=== PATIENT | male | born 1965 | race Caucasian/White ===

== ENCOUNTER 2017-01-06 10:53 | Inpatient (IN) | payer OTHER ==
[~2017-01-06] VITALS: Ht 180.3 cm; Wt 84.5 kg
--- NOTE | 2017-01-06 11:05 | NUR ---
Patient admitted to room [address] Chamorro's office. He reports cough and congestion since last week with an increase in sputum over the last several days. Sputum is green/ brown in color. Denies pain. No shortness of air noted at rest.
[2017-01-06] MEDS ORDERED: MAGNESIUM HYDROXIDE 80MG/ML (MILK OF MAGNESIA) 30 ML UDC PO PRN (11:10)
[2017-01-06] MEDS ORDERED: DEXTROSE 50% 25 GM/50 ML SYRINGE IV PRN (11:10)
[2017-01-06] MEDS ORDERED: GLUCAGON EMERGENCY 1 MG/KIT IM PRN (11:10)
[2017-01-06] MEDS ORDERED: ALBUTEROL 0.083% NEB SOLUTION 2.5 MG/3 ML VIAL INH PRN (11:10)
[2017-01-06] MEDS ORDERED: CALCIUM CARBONATE CHEWABLE 300 MG (TUMS) TABLET PO PRN (11:10)
[2017-01-06] MEDS ORDERED: MAG HYDROX/AL HYDROX/SIMETH 200-200-20/5 ML (MAG-AL PLUS) 30 ML UDC PO PRN (11:10)
[2017-01-06] MEDS ORDERED: DOCUSATE SODIUM 100 MG (COLACE) CAP PO PRN (11:10)
[2017-01-06] MEDS ORDERED: POLYETHYLENE GLYCOL 17 GM (MIRALAX) PACKET PO PRN (11:10)
[2017-01-06] MEDS ORDERED: ACETAMINOPHEN 325 MG TAB (TYLENOL) PO PRN (11:10)
[2017-01-06] MEDS ORDERED: IBUPROFEN 600 MG (MOTRIN) TAB PO PRN (11:10)
[2017-01-06] MEDS ORDERED: PROMETHAZINE HCL INJ 12.5 MG in SODIUM CHLORIDE 25 ML IV PRN (11:10)
[2017-01-06] MEDS ORDERED: DEXTROSE ORAL GEL (GLUTOSE 40%) 15 GM TUBE PO PRN (11:10)
[2017-01-06] MEDS ORDERED: NS FLUSH 10 ML PRN IV (11:30)
[2017-01-06] MEDS ORDERED: NS FLUSH 3 ML PRN IV (11:30)
[2017-01-06] MEDS ORDERED: LEVOFLOXACIN 750 MG/150 ML IV 150 ML IV SCH (11:30)
[2017-01-06 11:43] VITALS: BP 110/69
[2017-01-06 11:44] VITALS: BP 110/69
--- NOTE | 2017-01-06 12:00 | NUR ---
Attempted IV access X2 in the right hand but I was unsuccessful.
--- NOTE | 2017-01-06 12:15 | NUR ---
IV access obtained by Elle Goldstein RN in the left forearm- #[id number].
[2017-01-06] MEDS: ONDANSETRON 4 MG (ZOFRAN) ORAL DISSOLVE TAB PO PRN ×2 (12:28→18:17)
[2017-01-06] MEDS: INSULIN LISPRO 1 UNIT/0.01 ML (HUMALOG) DOSE SC SCH ×5 (12:45→21:41)
--- NOTE | 2017-01-06 13:15 | NUR ---
PCR collected and sent to lab.
[2017-01-06 14:07] LABS: ALBUMIN 3.4 g/dL (3.4-5.0); ANION GAP 18.2 MEQ/L (3-15); CALCULATED IONIZED CALCIUM 3.9 mg/dL (3.8-4.6); TOTAL PROTEIN 6.2 g/dL (6.4-8.5)
--- NOTE | 2017-01-06 14:31 | NUR ---
Sputum collected and sent to lab.
[2017-01-06 15:51] VITALS: BP 107/63
[2017-01-06 16:02] LABS: BILIRUBIN,URINE Negative (Negative); CLARITY,URINE Clear; GLUCOSE, URINE (UA) 2+ (Negative); LEUKOCYTE ESTERASE ,URINE Negative (Negative); PH,URINE 5.5 (5.0 - 8.0); UROBILINOGEN,URINE 0.2 mg/dL (0.2-1.0)
[2017-01-06 17:25] LABS: COLOR,URINE Dark Yellow
--- NOTE | 2017-01-06 17:26 | NUR ---
Pt. on room air, 94%. Instructed on use of acapella, frequent harsh NPC with each breath on acapella. Pt. informed of nebulizer tx's.
[2017-01-06 17:30] LABS: AMORPHOUS SEDIMENT,UR 1+ /HPF; RBC,URINE 20-50 /HPF; URINE CENTRIFUGED VOLUME 12 mL
--- NOTE | 2017-01-06 19:30 | NUR ---
Pt. very politely refuses SCD's; "I just don't think I would get any sleep at all".
--- NOTE | 2017-01-06 19:35 | NUR ---
Patient continues with intermittent nausea but no vomiting. Held meal time insulin due to poor oral intake- only a few bites of soup.
[2017-01-06] MEDS: guaiFENesin ER 600 MG (MUCINEX) TAB PO SCH (20:06)
--- NOTE | 2017-01-06 20:10 | NUR ---
New order of NS infusing without difficulty. Pt. denies discomfort; fatigued; occasional cough noted; at bedside. Call light and H2O within reach.
[2017-01-06 20:27] VITALS: BP 104/56
[2017-01-06] MEDS ORDERED: INSULIN GLARGINE 1 UNIT/0.01ML (LANTUS) DOSE SC SCH (21:00)
--- NOTE | 2017-01-06 21:45 | NUR ---
Accucheck is 240; Humalog 2 units given per sliding scale insulin. Lantus 15 units given per order. IVF infusing without difficulty; pt. resting in bed; denies nausea; occasional cough noted. Call light and H2O within reach.
[2017-01-07 00:51] VITALS: BP 108/66
[2017-01-07 04:17] VITALS: BP 109/64
--- NOTE | 2017-01-07 05:02 | NUR ---
Radiology here to take pt. downstairs for xray via wheelchair.
[2017-01-07 06:18] LABS: MEAN CORPUSCULAR HEMOGLOBIN 30.6 PG (26.0-34.0); MEAN CORPUSCULAR VOLUME 84 FL (80-100); MEAN PLATELET VOLUME 9.6 FL (6.0-9.5); PLATELET COUNT 203 10^3uL (150-450); WHITE BLOOD COUNT 16.94 10^3uL (4.0-11.0)
[2017-01-07 06:27] LABS: ALBUMIN 3.1 g/dL (3.4-5.0); ANION GAP 12.9 MEQ/L (3-15); PHOSPHORUS 1.8 mg/dL (2.4-4.9)
--- NOTE | 2017-01-07 06:40 | NUR ---
Pt. has remained afebrile throughout the shift; fatigued; occasional cough. Pt. denies discomfort. Accucheck is 216 this morning; sliding scale insulin to be given. NS fully infused. Pt. is very pleasant and cooperative; call light and H2O within reach.
[2017-01-07 06:52] LABS: MEAN CORPUSCULAR HGB CONC 36.5 g/dL (31.0-37.0)
[2017-01-07 06:59] LABS: BAND NEUTROPHILS % 5 % (0-6); EOSINOPHILS % 0 % (0-4); LYMPHOCYTES # 1.2 #; MONOCYTES # 1.3 #; MONOCYTES % 8 % (3-11); RBC MORPH NORMAL (NORMAL); SEGMENTED NEUTROPHILS % 80 % (51-67); TOTAL CELLS COUNTED 100
[2017-01-07 07:37] VITALS: BP 108/67
[2017-01-07] MEDS: INSULIN LISPRO 1 UNIT/0.01 ML (HUMALOG) DOSE SC SCH ×4 (07:44→12:27)
[2017-01-07] MEDS ORDERED: NON-FORMULARY MEDICATION 1 EA EA (Aspirin 81 MG) PO SCH (09:00)
[2017-01-07] MEDS ORDERED: ATORVASTATIN 10 MG (LIPITOR) TABLET PO SCH (09:00)
[2017-01-07] MEDS ORDERED: NS FLUSH 3 ML DAILY IV SCH (09:00)
[2017-01-07] MEDS ORDERED: ASPIRIN 81 MG CHEW (CHILDREN'S ASA) PO SCH (09:00)
--- NOTE | 2017-01-07 09:17 | NUR ---
NUTRITION ASSESSMENT Level 1 Patient: Corky Brandt Age/Sex: 51/M Date Screened: 01-07-17 Weight: 185.9#/84.5 kg Height: 71 inches Primary Diagnosis: SIRS, acute respiratory distress Diet Order: medium diabetic Relevant labs: sodium 134, glucose 224, Hgb A1c 7.5, phosphorus 1.8 Food allergies: N Nutrition Assessment Criteria Age over 80: N Body Mass Index (BMI) under 19: N Admission Screening Indicates Risk? 3 points Moderate/High Risk Diagnosis: 3 points TPN or PPN: N NPO or clear liquid diet: N Serum Glucose <70 or >180: 3 points Hgb A1c >6.7: 3 points Total: 12 points Risk Screen: __ Patient at low nutritional risk based on available data; reevaluate in 5-7 days __ Patient at moderate nutritional risk based on available data; reevaluate in 3-5 days _X_ Patient at high nutritional risk; complete Nutrition Assessment within 48 hours of admission.
[2017-01-07] MEDS: guaiFENesin ER 600 MG (MUCINEX) TAB PO SCH (09:19)
--- NOTE | 2017-01-07 09:36 | NUR ---
Med Rec completed via list from , external med hx as well as conversation with patient.
[2017-01-07] MEDS ORDERED: POTASSIUM PHOSPHATE 21 MM in SODIUM CHLORIDE 250 ML IV ONE (10:40)
[2017-01-07] MEDS ORDERED: INFLUENZA VIRUS VACCINE 60MCG/0.5 ML (FLUZONE QUAD) VIAL IM ONE (10:50)
[2017-01-07] MEDS ORDERED: LEVOFLOXACIN 750 MG TAB (LEVAQUIN) PO SCH (11:00)
--- NOTE | 2017-01-07 11:16 | NUR ---
NUTRITION ASSESSMENT Level II Patient: Corky Brandt Age/Sex: 51/M Date Assessed: 01-07-17 ASSESSMENT Pertinent History: Patient admitted with SIRS and acute respiratory distress and screened at high nutritional risk secondary to diagnosis and 9# weight loss over the past week with n/v/poor appetite. PMHx includes type 1 diabetes. He is normally healthy. Meds/Nutrition: ASA, Lipitor, Lantus, Humalog Weight: 185.9#/84.5 kg Height: 71 inches Body Mass Index (BMI): 26.0 [place] Body Weight : 172#/78.1 kg % IBW: 108% GASTROINTESTINAL Appetite: poor, eating 0-bites Diet Order: medium diabetic Unintentional loss of >10 lbs. in 3 months: N Difficult to chew/swallow: N Diabetes: Yes Relevant Labs: glucose 224, Hgb A1c 7.5, sodium 134, phosphorus 1.8 Calculations for Nutritional Assessment Estimated calorie needs: 22-25 kcals/kg = 1,840-2,100 kcals Estimated protein needs: 1.0-1.1 g/kg = 84-92 g./day DIAGNOSIS 1. 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 NUTRITIONAL INTERVENTION Goal: Patient will receive adequate nutrition to meet his needs. Plan: Will provide medium diabetic diet as ordered and monitor intake for adequacy. May benefit from full liquids for now until appetite returns; will include Glucerna on lunch and dinner trays. Expect weight to return to normal with resumption of p.o. intake. MONITORING & EVALUATION _X_ Monitor patients menu selections _X_ Monitor patients food intake per nursing notes __ Monitor NPO/clear liquid days _X_ Monitor lab values __ Monitor I&O __ Other
[2017-01-07 11:47] VITALS: BP 105/69
--- NOTE | 2017-01-07 11:57 | NUR ---
Influenza vaccine administered into right deltoid at this time. Patient tolerates well.
[2017-01-07 16:16] VITALS: BP 96/60
--- NOTE | 2017-01-07 16:32 | NUR ---
Discharge order received. IV discontinued with catheter intact. No redness or swelling noted at insertion site. Instructions provided to patient and with verbal and written understanding expressed. 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 No further needs.
== END 2017-01-07 16:30 | disposition home or self-care (01) | DRG 871 ==
LOC: OBSVTOIN 10:53 → MED/SURG 10:53 → UNDOADMOB 10:53
PROVIDERS: ADMIT Internal Medicine; ATTEND Internal Medicine
DX: A41.9 Sepsis, unspecified organism (principal); J18.9 Pneumonia, unspecified organism; E10.65 Type 1 diabetes mellitus with hyperglycemia; E86.0 Dehydration; E83.39 Other disorders of phosphorus metabolism; E78.5 Hyperlipidemia, unspecified; Z23 Encounter for immunization; Z79.4 Long term (current) use of insulin
CPT/HCPCS: 36415; 71020; 80053; 80069; 81003; 81015; 83036; 85025; 87040; 87070; 87077; 87186; 87205; 87486; 87581; 87633; 87798; 90654; 94669; 94760